=== PATIENT | male | born 1985 ===

== ENCOUNTER 2017-10-12 07:42 | Emergency (ER) | payer SELFPAY ==
[2017-10-12 07:51] VITALS: RESP 18
[2017-10-12] MEDS ORDERED: Sodium Chloride 0.9% 1,000 ML IV ONE (08:02)
--- NOTE | 2017-10-12 08:16 | C.PDOC ---
History Of Present Illness 32 year old male presents to the ED c/o right flank pain radiating to his abdomen worsened by walking. Patient reports he was awakened this morning by the pain, he also states having a stomachache as well. Patient reports he had an appendectomy before. Patient denies fever, nausea, chills, vomit, dyuria, hematuria, or bowel movements change. Time Seen by Provider: 10/12/17 07:45 Chief Complaint (Nursing): Back Pain History Per: Patient History/Exam Limitations: no limitations Onset/Duration Of Symptoms: Hrs Current Symptoms Are (Timing): Still Present Quality Of Discomfort: "Pain" Severity: None Associated Symptoms: None Exacerbating Factor(s): Movement Recent travel outside of the [place]: No Additional History Per: Patient Past Medical History Reviewed: Historical Data, Nursing Documentation, Vital Signs Vital Signs: Last Vital Signs Temp 98.8 F 10/12/17 11:05 Pulse 65 10/12/17 11:05 Resp 18 10/12/17 11:05 BP 107/67 10/12/17 11:05 Pulse Ox 99 10/12/17 11:05 - Medical History PMH: No Chronic Diseases Surgical History: Appendectomy Family History: States: No Known Family Hx - Social History Hx Alcohol Use: Yes Hx Substance Use: No - Immunization History Hx Tetanus Toxoid Vaccination: Yes Hx Influenza Vaccination: No Hx Pneumococcal Vaccination: No Review Of Systems Constitutional: Negative for: Fever, Chills Cardiovascular: Negative for: Chest Pain, Palpitations Respiratory: Negative for: Cough, Shortness of Breath Gastrointestinal: Positive for: Abdominal Pain. Negative for: Nausea, Vomiting , Constipation Genitourinary: Negative for: Dysuria, Hematuria Musculoskeletal: Positive for: Back Pain Skin: Negative for: Rash Neurological: Negative for: Weakness, Numbness Physical Exam - Physical Exam Appears: Non-toxic, No Acute Distress Skin: Normal Color, Warm, Dry Head: Atraumatic, Normacephalic Nose: No Discharge Oral Mucosa: Moist Neck: Normal ROM, Supple Chest: Symmetrical Cardiovascular: Rhythm Regular, No Murmur Respiratory: Normal Breath Sounds, No Rales, No Rhonchi, No Wheezing Gastrointestinal/Abdominal: Soft, Tenderness (Right side ), No Distention, No Rebound Back: CVA Tenderness (Right) Extremity: Normal ROM, No Pedal Edema, No Calf Tenderness, No Deformity, No Swelling Neurological/Psych: Oriented x3, Normal Speech, Normal Cognition Gait: Steady ED Course And Treatment - Laboratory Results Result Diagrams: 10/12/17 08:18 10/12/17 08:18 Lab Interpretation: Normal O2 Sat by Pulse Oximetry: 100 (On RA) Pulse Ox Interpretation: Normal - CT Scan/US CT abdo/pelvis Other Rad Studies (CT/US): Interpreted By Me, Read By Radiologist, Radiology Report Reviewed CT/US Interpretation: PROCEDURE: CT scan abdomen and pelvis dated 10/12/2017. HISTORY: Pain. COMPARISON: None. TECHNIQUE: Contiguous axial images of the abdomen and pelvis performed without oral or intravenous contrast material. . Coronal and Sagittal reformats generated. This CT exam was performed using one or more of the following dose reduction techniques: Automated exposure control, adjustment of the mA and/or kV according to patient size, and/or use of iterative reconstruction technique. Radiation dose: Total exam DLP = 880.8 mGy -cm. FINDINGS: LOWER THORAX: Lung bases are clear without infiltrate effusion or basilar pneumothorax. Tiny hiatal hernia. Heart size within range of normal. No significant pericardial effusion. . Minimal changes of gynecomastia. LIVER: Liver exhibits normal size measuring approximately 16.2 cm in CC dimension. No obvious hepatic mass collection or calcification. GALLBLADDER AND BILE DUCTS: The gallbladder appears incompletely distended. No evidence of intraluminal gallbladder calculi. PANCREAS: Visualized portions of the pancreas appear grossly unremarkable without masses collections or calcifications. No significant pancreatic ductal dilatation. SPLEEN: Spleen exhibits normal size and attenuation pattern without mass collection or calcification. ADRENALS: There are no adrenal lesions. KIDNEYS AND URETERS: Kidneys demonstrate relatively symmetric size. . Small approximately 2.8 mm calculus within the posterior inferior margin of the bladder lumen consistent with a recently passed calculus. The right ureter appears mildly dilated. BLADDER: Urinary bladder is incompletely distended which in part accounts for thick-walled appearance. Muscular hypertrophy may contribute. Cystitis in a male patient be less likely in the absence of a pertinent clinical history however not completely excluded. . There is a tiny approximately 2.8 mm calculus within urinary bladder consistent with recently passed calculus. . The right ureter is mildly dilated. REPRODUCTIVE: Prostate gland measures approximately 3.8 cm in transverse dimension. APPENDIX: Status post appendectomy. BOWEL: Evaluation of the bowel is limited due to the lack of oral contrast material. Stomach is incompletely distended with secondary thick- walled appearance. Possibility of a gastritis not excluded. Visualized loops of small bowel exhibit normal contour and caliber. No evidence of acute mechanical small bowel obstruction. Moderate amount of stool is seen within the ascending and transverse colon consistent with mild fecal retention/ constipation. PERITONEUM: Unremarkable. No fluid collection. No free air. Small fat containing right inguinal hernia. . There is also a tiny fat containing umbilical hernia. LYMPH NODES: Unremarkable. No enlarged lymph nodes. VASCULATURE: Unremarkable. No aortic aneurysm. BONES: Some very minor multilevel degenerative spondylosis of the lower thoracic and lumbar spine. There are no acute compression fractures no retropulsed fragments. Few tiny sclerotic foci seen within the right acetabular region as well as both femoral heads consistent with tiny bone islands or osteomas. OTHER FINDINGS: None. IMPRESSION: There is a tiny approximately 2.8 mm calculus within urinary bladder consistent with recently passed calculus. . The right ureter is mildly dilated. Findings consistent with constipation. . Findings discussed with the emergency room AIDE Roberts at approximately 8:58 a.m. with written down and read back verification. Progress Note: treated with IVF NSS, toradol IV. On re-evaluation abdomen soft non-tender. Discharged in stable condition Reassessment Condition: Improved Medical Decision Making Medical Decision Making: Impression : right side abdominal pain, right flank pain Plan: * CT abdo/pelvis no contrast * Blood work * UA * Toradol 30 mg IVP * IV fluids Disposition Counseled Patient/Family Regarding: Studies Performed, Diagnosis, Need For Followup, Rx Given - Disposition Referrals: Lazaro Royal MD [Staff Provider] - [facility] [Outside] [facility] [employer] 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 - Scribe Statement The provider has reviewed the documentation as recorded by the Scribe Tashi Martini All medical record entries made by the Bangibmichelle were at my direction and personally dictated by me. I have reviewed the chart and agree that the record accurately reflects my personal performance of the history, physical exam, medical decision making, and the department course for this patient. I have also personally directed, reviewed, and agree with the discharge instructions and disposition.
[2017-10-12 08:19] LABS: RBC URINE 1679 /hpf (0-3); URINE BACTERIA RARE (<OCC); URINE BILIRUBIN NEGATIVE (NEGATIVE); URINE BLOOD 3+ (NEGATIVE); URINE COLOR Yellow (YELLOW); URINE GLUCOSE (UA) NORMAL (Normal); URINE KETONE NEGATIVE (NEGATIVE); URINE LEUKOCYTE ESTERASE NEG Leu/uL (Negative); URINE PROTEIN 1+ mg/dL (NEGATIVE); URINE UROBILINOGEN NORMAL mg/dL (0.2-1.0); WBC URINE 7 /hpf (0-5)
[2017-10-12] MEDS ORDERED: Sodium Chloride 0.9% 1,000 ML ONE (08:23)
[2017-10-12 08:24] LABS: BASO % 0.3 % (0.0-2.0); EOS # 0.1 K/uL (0.0-0.7); EOS % 1.3 % (0.0-4.0); HEMATOCRIT 35.3 % (35.0-51.0); LYMPH # 1.3 K/uL (1.0-4.3); LYMPH % 14.6 % (20.0-40.0); MEAN CELL VOLUME 90.1 fL (80.0-94.0); MEAN CORPUSCULAR HEMOGLOBIN 32.1 pg (27.0-31.0); MEAN CORPUSCULAR HGB CONC 35.7 g/dL (33.0-37.0); MEAN PLATELET VOLUME 6.9 fL (7.2-11.7); MONO # 0.8 K/uL (0.0-0.8); RED CELL DISTRIBUTION WIDTH 12.5 % (11.5-14.5); WHITE BLOOD COUNT 9.1 K/uL (4.8-10.8)
[2017-10-12 08:36] LABS: ALB/GLOB RATIO 1.5 (1.0-2.1); ALKALINE PHOSPHATASE 61 U/L (38-126); ALT/SGPT 40 U/L (21-72); AST/SGOT 20 U/L (17-59); BILIRUBIN,TOTAL 1.2 mg/dL (0.2-1.3); BLOOD UREA NITROGEN 15 mg/dL (9-20); CALCIUM 8.7 mg/dl (8.6-10.4); CARBON DIOXIDE 29 mmol/L (22-30); CHLORIDE 101 mmol/L (98-107); GFR AFRICAN-AMERICAN > 60; GLUCOSE,RANDOM 102 mg/dL (75-110); POTASSIUM 3.3 mmol/L (3.6-5.2); SODIUM 139 mmol/L (132-148); TOTAL PROTEIN 7.1 g/dL (6.3-8.3)
--- NOTE | 2017-10-12 10:02 | CT ---
PROCEDURE: CT scan abdomen and pelvis dated 10/12/2017 HISTORY: Pain COMPARISON: None. TECHNIQUE: Contiguous axial images of the abdomen and pelvis performed without oral or intravenous contrast material. . Coronal and Sagittal reformats generated. This CT exam was performed using one or more of the following dose reduction techniques: Automated exposure control, adjustment of the mA and/or kV according to patient size, and/or use of iterative reconstruction technique. Radiation dose: Total exam DLP = 880.8 mGy-cm. FINDINGS: LOWER THORAX: Lung bases are clear without infiltrate effusion or basilar pneumothorax. Tiny hiatal hernia. Heart size within range of normal. No significant pericardial effusion. . Minimal changes of gynecomastia. LIVER: Liver exhibits normal size measuring approximately 16.2 cm in CC dimension. No obvious hepatic mass collection or calcification. GALLBLADDER AND BILE DUCTS: The gallbladder appears incompletely distended. No evidence of intraluminal gallbladder calculi. PANCREAS: Visualized portions of the pancreas appear grossly unremarkable without masses collections or calcifications. No significant pancreatic ductal dilatation. SPLEEN: Spleen exhibits normal size and attenuation pattern without mass collection or calcification. ADRENALS: There are no adrenal lesions. KIDNEYS AND URETERS: Kidneys demonstrate relatively symmetric size. . Small approximately 2.8 mm calculus within the posterior inferior margin of the bladder lumen consistent with a recently passed calculus. The right ureter appears mildly dilated. BLADDER: Urinary bladder is incompletely distended which in part accounts for thick-walled appearance. Muscular hypertrophy may contribute. Cystitis in a male patient be less likely in the absence of a pertinent clinical history however not completely excluded. . There is a tiny approximately 2.8 mm calculus within urinary bladder consistent with recently passed calculus. . The right ureter is mildly dilated. REPRODUCTIVE: Prostate gland measures approximately 3.8 cm in transverse dimension. APPENDIX: Status post appendectomy. BOWEL: Evaluation of the bowel is limited due to the lack of oral contrast material. Stomach is incompletely distended with secondary thick-walled appearance. Possibility of a gastritis not excluded. Visualized loops of small bowel exhibit normal contour and caliber. No evidence of acute mechanical small bowel obstruction. Moderate amount of stool is seen within the ascending and transverse colon consistent with mild fecal retention/constipation. PERITONEUM: Unremarkable. No fluid collection. No free air. Small fat containing right inguinal hernia. . There is also a tiny fat containing umbilical hernia. LYMPH NODES: Unremarkable. No enlarged lymph nodes. VASCULATURE: Unremarkable. No aortic aneurysm. BONES: Some very minor multilevel degenerative spondylosis of the lower thoracic and lumbar spine. There are no acute compression fractures no retropulsed fragments. Few tiny sclerotic foci seen within the right acetabular region as well as both femoral heads consistent with tiny bone islands or osteomas. OTHER FINDINGS: None. IMPRESSION: There is a tiny approximately 2.8 mm calculus within urinary bladder consistent with recently passed calculus. . The right ureter is mildly dilated. Findings consistent with constipation. . Findings discussed with the emergency room AIDE Roberts at approximately 8:58 a.m. with written down and read back verification.
[2017-10-12 11:05] VITALS: BP 107/67; PULSE 65; TEMP 98.8
[2017-10-12 14:32] VITALS: O2SAT 100
== END 2017-10-12 11:37 | disposition home or self-care (01) ==
LOC: C.ER 07:42
DX: N23 Unspecified renal colic (principal)
CPT/HCPCS: 74176; 80053; 81001; 85025; 96361; 96374; 99284; J1885; J7040